=== PATIENT | male | born 1970 | race Caucasian/White ===

== ENCOUNTER 2020-10-02 19:43 | Emergency (ER) | payer OTHER ==
[~2020-10-02] VITALS: Ht 198.1 cm; Wt 104.3 kg
--- NOTE | ~2020-10-02 | EMS ---
[address] [address] EMS Patient Care Report Name: MICHAEL NORWOOD Room: [facility] BK Carrillo#: [id number] Admission: 10/02/20 Attend Phys: Discharge: 10/02/20 Date of : 70 Report #: [id number] THIS REPORT FOR: //name// Report Transmitted: 10/03/2020 04:48 EMS Care Summary [facility] [place] Incident [id number] @ 10/02/2020 18:47 Incident Location [address] [place] [address] Patient Michael Norwood Male, 50 Years 1970 Patient Address [address] [place] [address] Patient History Fibromyalgia,Chronic Obstructive Pulmonary Disease (COPD), Patient Allergies No known allergies, Patient Medications Lyrica, Testosterone, Ketamine, Chief Complaint Nausea Disposition Transported No Lights/[place] Reason Overdose/Poisoning/Ingestion Transported To [facility] Narrative Medic 322 was disaptched for a 911 call for an overdose. Medic 322 arrived on scene to find a male subject sitting in a chair talking to PD. The patient stated that he took 300 mg of Ketamine to get his a rough day out of his head. He stated that he did not want to harm himself. The patient only complained of [address] [address] EMS Patient Care Report Name: MICHAEL NORWOOD Room: [facility]#: [id number] Admission: 10/02/20 Attend Phys: Discharge: 10/02/20 Date of : 70 Report #: [id number] being nauseous. The patient also stated that he had an unknown amount of alcohol. Flo Jimenez started an assessment on the patient. Flo Jimenez assisted/ walked the patient to the [facility], and secured him using all the straps provided. The patient was transfered to the [facility] without difficulty. Flo Jimenez transported the patient to the ambulance using the [facility]. Once in the back of the [facility] Flo Jimenez continued her assessment on the patient. Abiola took a set of vitals on the patient about every ten to fifteen mintues. The medic started an IV on the patient and got a blood sugar off the IV. Migue Huston gave the patient a dose of zofran. the patient rested comfortably on the [facility] during the transport. He wanted to be transported to [facility]. Flo Jimenez arrived at [place] and transported the patient to his room using the [facility]. The patient slid himself over to the hospital bed. Flo Jimenez gave a verbal report to the nurse, and transferred patient care to the nurse. HIPAA was signed by the patient. Migue Huston EMT-P #[id number] Initial Vitals @19:17 @18:58P: 100,R: 18,BP: 199/120, @19:00P: 99,R: 18,BP: 226/130, @19:16P: 90,R: 18,BP: 179/101, @19:34P: 75,R: 18,BP: 172/108, @19:17XsPW6: 41, @19:84DkPG8: 41, @18:58GCS: 15, @19:00GCS: 15, @19:16GCS: 15, @19:34GCS: 15, @19:24Glucose: 150, Assessments @18:56MENTAL:SKIN:HEENT:LUNG SOUNDS:ABDOMEN:PELVIS//GI:EXTREMITIES:PULSE:NEURO: Impression Other psychoactive substance use, unspecified Procedures @19:25Ondansetron - 4.000 Milligrams (mg) - Intravenous (IV)Response: Unchanged@19:21 cc () Site: Antecubital-RightResponse: UnchangedSucceeded@19:21Digital respired carbon dioxide monitoring (regime/therapy)Response: UnchangedSucceeded@19:21Digital respired carbon dioxide monitoring (regime/therapy)Response: UnchangedSucceeded@19:173-Lead ECGResponse: UnchangedSucceeded Timeline 18:46,[place] [address] EMS Patient Care Report Name: ENMAMICHAEL Room: [facility] Lorena#: [id number] Admission: 10/02/20 Attend Phys: Discharge: 10/02/20 Date of : 70 Report #: [id number] 18:46,Dispatch Notified 18:46,Psap Call 18:47,Dispatched 18:47,En Route 18:54,On Scene 18:56,At Patient 18:58,BP: 199/120 M,PULSE: 100,RR: 18 R,SPO2: Ox,ETCO2: ,BG: ,PAIN: ,GCS: , 18:58,BP: / M,PULSE: ,RR: R,SPO2: Ox,ETCO2: ,BG: ,PAIN: ,GCS: 15, 19:00,BP: 226/130 M,PULSE: 99,RR: 18 R,SPO2: Ox,ETCO2: ,BG: ,PAIN: ,GCS: , 19:00,BP: / M,PULSE: ,RR: R,SPO2: Ox,ETCO2: ,BG: ,PAIN: ,GCS: 15, 19:16,BP: 179/101 M,PULSE: 90,RR: 18 R,SPO2: Ox,ETCO2: ,BG: ,PAIN: ,GCS: , 19:16,BP: / M,PULSE: ,RR: R,SPO2: Ox,ETCO2: ,BG: ,PAIN: ,GCS: 15, 19:17,3-Lead ECG,Response: UnchangedSucceeded, 19:17,BP: / M,PULSE: ,RR: R,SPO2: Ox,ETCO2: ,BG: ,PAIN: ,GCS: , 19:21,Depart Scene 19:21, cc Site: Antecubital-Right,Response: UnchangedSucceeded, 19:21,Digital respired carbon dioxide monitoring (regime/therapy),Response: UnchangedSucceeded, 19:21,Digital respired carbon dioxide monitoring (regime/therapy),Response: UnchangedSucceeded, 19:21,BP: / M,PULSE: ,RR: R,SPO2: Ox,ETCO2: 41 ,BG: ,PAIN: ,GCS: , 19:21,BP: / M,PULSE: ,RR: R,SPO2: Ox,ETCO2: 41 ,BG: ,PAIN: ,GCS: , 19:24,BP: / M,PULSE: ,RR: R,SPO2: Ox,ETCO2: ,B,PAIN: ,GCS: , 19:25,Ondansetron - 4.000 Milligrams (mg) - Intravenous (IV),Response: Unchanged 19:34,BP: 172/108 M,PULSE: 75,RR: 18 R,SPO2: Ox,ETCO2: ,BG: ,PAIN: ,GCS: , 19:34,BP: / M,PULSE: ,RR: R,SPO2: Ox,ETCO2: ,BG: ,PAIN: ,GCS: 15, 19:39,At Destination 19:56,Call Closed Disclaimer v1.1 Copyright 2020 [employer] This EMS Care Summary contains data elements from the applicable legal record (which may be displayed differently). It is designed to provide pertinent information for the following purposes: continuity of care, clinical quality, and state data reporting. The complete legal record is available to ED staff and administrators of the receiving hospital in [employer]'s Patient Tracker. All data is provided "as is."
[2020-10-02] MEDS ORDERED: SEROQUEL 100 M100 M1 PO (19:59)
[2020-10-02] MEDS ORDERED: LYRICA100 MG PO (19:59)
[2020-10-02] MEDS ORDERED: KETAMINE HCL SUBLING (20:00)
[2020-10-02 20:07] LABS: ABSOLUTE EOSINOPHILS 0.1 thou/uL (0.0-0.7); ABSOLUTE LYMPHOCYTES 2.1 thou/uL (0.8-5.3); ABSOLUTE MONOCYTES 0.4 thou/uL (0.0-1.2); ABSOLUTE NEUTROPHILS 4.1 thou/uL (1.6-8.1); BASOPHILS 0.6 %; EOSINOPHILS 0.9 %; HEMATOCRIT 42.9 % (42.0-52.0); HEMOGLOBIN 14.5 gm/dL (14.0-18.0); LYMPHOCYTES 31.4 %; MCH 30.9 pg (26.0-34.0); MCHC 33.7 g/dL (28.0-37.0); MCV 91.7 fL (80.0-100.0); MONOCYTES 5.8 %; MPV 8.2 fl. (7.2-11.1); NUCLEATED RBCS 0 /100WBC; PLATELET COUNT* 193 thou/uL (150-400); POLYS 61.3 %; RBC 4.68 mil/uL (4.50-6.00); RDW-CV 13.1 % (10.5-14.5); WBC 6.7 thou/uL (4.0-11.0)
[2020-10-02 20:15] LABS: CALCIUM 8.6 mg/dL (8.5-10.1); POTASSIUM 3.5 mmol/L (3.5-5.1)
[2020-10-02 21:07] VITALS: BP 155/76
--- NOTE | 2020-10-03 12:44 | EKG ---
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
== END 2020-10-02 21:07 | disposition home or self-care (01) ==
LOC: M.ERS 19:43
PROVIDERS: Emergency Medicine
DX: T41.291A Poisoning by other general anesthetics, accidental (unintentional), initial encounter (principal); Z79.899 Other long term (current) drug therapy; Y92.89 Other specified places as the place of occurrence of the external cause